=== PATIENT | female | born 1985 | race Caucasian/White ===

== ENCOUNTER 2019-11-14 13:37 | Emergency (ER) | payer OTHER ==
[2019-11-14 13:55] LABS: CHLORIDE,CL 102 mmol/L (98-107); SODIUM,NA 137 mmol/L (136-145)
--- NOTE | 2019-11-14 15:35 | EDM.PDOC ---
ED HPI GENERAL MEDICAL PROBLEM - General Chief Complaint: Laceration Stated Complaint: fall,laceration Time Seen by Provider: 11/14/19 13:38 Source of Information: Reports: Patient History Limitations: Reports: No Limitations - History of Present Illness INITIAL COMMENTS - FREE TEXT/NARRATIVE: Pt fell off excavator and hit right side of head again blade No LOC Laceration right ear Transported from [facility] by private vehicle Last tetanus 2017 Onset: Today, Sudden Location: Reports: Head Context: Reports: Trauma - Related Data Allergies Allergy/AdvReac Type Severity Reaction Status Date / Time No Known Allergies Allergy Verified 11/14/19 14:07 Home Meds: Home Meds . [No Known Home Meds] 11/14/19 [History] ED ROS GENERAL - Review of Systems Review Of Systems: See Below HEENT: Reports: Other (right ear laceration) Respiratory: Reports: No Symptoms Cardiovascular: Reports: No Symptoms GI/Abdominal: Reports: No Symptoms Musculoskeletal: Reports: No Symptoms Skin: Reports: Wound Neurological: Reports: No Symptoms ED EXAM, SKIN/RASH Exam: See Below Exam Limited By: No Limitations General Appearance: Alert, WD/WN, Moderate Distress Eye Exam: Bilateral Eye: EOMI, PERRL Ears: Other (Right ear with large fullthickness laceration thru entire ear from EAC extending outward and laceration to scalp behind ear) Nose: Normal Inspection Throat/Mouth: Normal Oropharynx Neck: Non-Tender Respiratory/Chest: Lungs Clear Cardiovascular: Regular Rate, Rhythm GI/Abdominal: Non-Tender Extremities: Normal Inspection Neurological: Alert, Oriented, No Motor/Sensory Deficits Psychiatric: Normal Affect, Normal Mood Course - Orders/Labs/Meds Orders: Active Orders 24 hr Category Date Time Status Head wo Cont [CT] Stat Exams 11/14/19 13:39 Taken Labs: Laboratory Tests 11/14/19 11/14/19 Range/Units 13:39 13:39 WBC 7.6 (4.0-10.2) K/uL RBC 3.98 (3.77-5.09) M/uL Hgb 12.7 (11.7-15.5) g/dL Hct 37.4 (34.0-46.0) % MCV 94.0 (84.0-98.0) fL MCH 31.9 (28.2-33.3) pg MCHC 34.0 (31.7-36.0) g/dL RDW 12.6 (11.2-14.1) % Plt Count 210 (150-350) K/uL Neut % (Auto) 51.9 (45.0-80.0) % Lymph % (Auto) 37.9 (10.0-50.0) % [place] % (Auto) 8.1 (2.0-14.0) % Eos % (Auto) 2.0 (0.0-5.0) % Baso % (Auto) 0.1 (0.0-2.0) % Neut # (Auto) 3.96 (1.40-7.00) K/uL Lymph # (Auto) 2.89 (0.50-3.50) K/uL [place] # (Auto) 0.62 (0.00-1.00) K/uL Eos # (Auto) 0.15 (0.00-0.50) K/uL Baso # (Auto) 0.01 (0.00-0.20) K/uL Sodium 137 (136-145) mmol/L Potassium 2.9 L* (3.5-5.1) mmol/L Chloride 102 (98-107) mmol/L Carbon Dioxide 23.5 (21.0-32.0) mmol/L BUN 14 (7-18) mg/dL Creatinine 0.75 (0.51-1.17) mg/dL Est Cr Clr Drug Dosing TNP Estimated GFR (MDRD) > 60 mL/min Glucose 112 H (74-106) mg/dL Calcium 8.8 (8.5-10.1) mg/dL Total Bilirubin 0.4 (0.2-1.0) mg/dL AST 18 (15-37) U/L ALT 31 (12-78) U/L Alkaline Phosphatase 64 (46-116) IU/L Total Protein 7.3 (6.4-8.2) g/dL Albumin 3.9 (3.4-5.0) g/dL - Re-Assessments/Exams Free Text/Narrative Re-Assessment/Exam: 11/14/19 15:[address] scan-WNL Pt requests transfer to [facility] for laceration repair D/W Dr Crocker [facility] Will accept in transfer Departure - Departure Time of Disposition: 15:45 Disposition: DC/Tfer to Acute Hospital 02 Clinical Impression: Laceration of ear Qualifiers: Encounter type: initial encounter Laterality: right Qualified Code(s): S01.311A - Laceration without foreign body of right ear, initial encounter - Discharge Information *PRESCRIPTION DRUG MONITORING PROGRAM REVIEWED*: Not Applicable *COPY OF PRESCRIPTION DRUG MONITORING REPORT IN PATIENT SELENE: Not Applicable Instructions: Laceration Care, Adult Referrals: PCP,None [Primary Care Provider] - Additional Instructions: To [facility] - My Orders Last 24 Hours: My Active Orders 11/14/19 13:39 Head wo Cont [CT] Stat - Assessment/Plan Last 24 Hours: My Active Orders 11/14/19 13:39 Head wo Cont [CT] Stat
== END 2019-11-14 15:45 ==
LOC: LL.ED 13:37
DX: S01.311A Laceration without foreign body of right ear, initial encounter (principal); S01.01XA Laceration without foreign body of scalp, initial encounter; W17.89XA Other fall from one level to another, initial encounter
CPT/HCPCS: 36415; 70450; 80053; 85025; 99284; 99284-25

== ENCOUNTER 2020-03-19 06:19 | Emergency (ER) | payer BC, OTHER ==
[2020-03-19 06:54] LABS: CHLORIDE,CL 103 mmol/L (98-107); SODIUM,NA 137 mmol/L (136-145)
--- NOTE | 2020-03-19 08:26 | EDM.PDOC ---
ED HPI GENERAL MEDICAL PROBLEM - General Chief Complaint: General Stated Complaint: SOB, dizziness Time Seen by Provider: 03/19/20 06:50 Source of Information: Reports: Patient History Limitations: Reports: No Limitations - History of Present Illness INITIAL COMMENTS - FREE TEXT/NARRATIVE: Approx 4am patient was in her [place] while at work when she felt a sudden brief sharp pain left chest. Followed by lightheaded sensation/mild SOB. Patient has had many similar episodes in past, approx 1-2 per month. They usually resolve relatively quickly. She reports that she feels a bit of panic when they start and her instinct is to jump out of her [employer]cat and either run around or walk quickly as she feels this makes the episodes go away more quickly. She feels more anxious if she sits down and waits for them to subside. Usually has a feeling of ringing in ears just prior to episodes but not today. 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 [No Known Home Meds] 11/14/19 [History] Past Medical History Other Cardiovascular History: recurrent dizziness episodes 1-2 times a month Psychiatric History: Reports: Other (See Below) (some feelings of anxiety/life stresses discussed 03/19/20, including stressful childhood and family life. No formal diagnosis of anxiety or depression in past) Social & Family History - Tobacco Use Tobacco Use Status *Q: Current Some Day Tobacco User Years of Tobacco use: 17 Packs/Tins Daily: 0.5 - Caffeine Use Caffeine Use: Reports: Soda - Alcohol Use Alcohol Use History: Yes Days Per Week of Alcohol Use Comment: Daily wine - Recreational Drug Use Recreational Drug Use: No ED ROS GENERAL - Review of Systems Review Of Systems: Comprehensive ROS is negative, except as noted in HPI. ED EXAM, GENERAL - Physical Exam Exam: See Below Exam Limited By: No Limitations General Appearance: Alert, WD/WN, No Apparent Distress Eye Exam: Bilateral Eye: EOMI, PERRL Ears: Normal External Exam, Normal Canal, Hearing Grossly Normal Nose: No: Nasal Deformity, Nasal Swelling, Nasal Drainage Throat/Mouth: Normal Lips, Normal Voice, No Airway Compromise Head: Normocephalic, Sinus Tenderness Neck: Normal Inspection, Supple, Non-Tender, Full Range of Motion Respiratory/Chest: No Respiratory Distress, Lungs Clear, Normal Breath Sounds, Chest Non-Tender Cardiovascular: Normal Peripheral Pulses, Regular Rate, Rhythm, No Edema, No Murmur GI/Abdominal: Normal Bowel Sounds, Soft, Non-Tender, No Distention (Female) Exam: Deferred Rectal (Female) Exam: Deferred Back Exam: Normal Inspection Extremities: Normal Inspection, Non-Tender, No Pedal Edema, Normal Capillary Refill Neurological: Alert, Oriented, Normal Cognition, Normal Gait, No Motor/Sensory Deficits Psychiatric: Normal Affect, Normal Mood Skin Exam: Warm, Dry, Intact, Normal Color #1 Interpretation EKG Date: 03/19/20 Time: 06:37 Rhythm: Other (sinus rhythm) Rate (Beats/Min): 73 Comparison: Other: (Suspect large amount of artifact present--Lead I appears to show NSR. Does not appear consistent with A-flutter. New EKG ordered.) #2 Interpretation EKG Date: 03/19/20 Time: 07:05 Rhythm: NSR Rate (Beats/Min): 70 [place]: Normal P-Wave: Present QRS: Normal ST-T: Normal QT: Normal EKG Interpretation Comments: No acute ischemic changes noted. Previous artifact appears to have resolved. Course - Vital Signs Last Recorded V/S: Last Vital Signs Temp 36.3 C 03/19/20 07:12 Pulse 63 03/19/20 08:23 Resp 20 03/19/20 08:23 BP 123/56 L 03/19/20 08:23 Pulse Ox 100 03/19/20 08:23 - Orders/Labs/Meds Orders: Active Orders 24 hr Category Date Time Status EKG Documentation Completion [RC] ASDIRECTED Care 03/19/20 06:27 Active EKG Documentation Completion [RC] ASDIRECTED Care 03/19/20 07:03 Active Chest 1V Frontal [CR] Stat Exams 03/19/20 06:26 Taken Labs: Laboratory Tests 03/19/20 03/19/20 03/19/20 Range/Units 06:35 06:35 06:35 WBC 7.5 (4.0-10.2) K/uL RBC 3.94 (3.77-5.09) M/uL Hgb 12.3 (11.7-15.5) g/dL Hct 36.7 (34.0-46.0) % MCV 93.1 (84.0-98.0) fL MCH 31.2 (28.2-33.3) pg MCHC 33.5 (31.7-36.0) g/dL RDW 12.2 (11.2-14.1) % Plt Count 174 (150-350) K/uL Neut % (Auto) 78.1 (45.0-80.0) % Lymph % (Auto) 15.4 (10.0-50.0) % [place] % (Auto) 5.9 (2.0-14.0) % Eos % (Auto) 0.5 (0.0-5.0) % Baso % (Auto) 0.1 (0.0-2.0) % Neut # (Auto) 5.85 (1.40-7.00) K/uL Lymph # (Auto) 1.15 (0.50-3.50) K/uL [place] # (Auto) 0.44 (0.00-1.00) K/uL Eos # (Auto) 0.04 (0.00-0.50) K/uL Baso # (Auto) 0.01 (0.00-0.20) K/uL D-Dimer, Quantitative < 100 (0-400) ng/mL Sodium 137 (136-145) mmol/L Potassium 3.9 (3.5-5.1) mmol/L Chloride 103 (98-107) mmol/L Carbon Dioxide 24.8 (21.0-32.0) mmol/L BUN 11 (7-18) mg/dL Creatinine 0.68 (0.51-1.17) mg/dL Est Cr Clr Drug Dosing TNP Estimated GFR (MDRD) > 60 mL/min Glucose 109 H (74-106) mg/dL Calcium 8.3 L (8.5-10.1) mg/dL Magnesium 1.9 (1.8-2.4) mg/dL Total Bilirubin 0.4 (0.2-1.0) mg/dL AST 16 (15-37) U/L ALT 29 (12-78) U/L Alkaline Phosphatase 67 (46-116) IU/L Troponin I 0.000 (0.000-0.056) ng/mL Total Protein 6.9 (6.4-8.2) g/dL Albumin 3.9 (3.4-5.0) g/dL Specimen Type Urine Color Urine Appearance Urine pH (5.0-9.0) Ur Specific [place] (1.005-1.030) Urine Protein (NEGATIVE) mg/dL Urine Glucose (UA) (NEGATIVE) mg/dL Urine Ketones (NEGATIVE) mg/dL Urine Occult Blood (NEGATIVE) Urine Nitrite (NEGATIVE) Urine Bilirubin (NEGATIVE) Urine Urobilinogen (0.2-1.0) E.U./dL Ur Leukocyte Esterase (NEGATIVE) Urine RBC /HPF Urine WBC /HPF Ur Epithelial Cells /LPF Urine Bacteria (NONE TO FEW) /HPF 03/19/20 Range/Units 07:42 WBC (4.0-10.2) K/uL RBC (3.77-5.09) M/uL Hgb (11.7-15.5) g/dL Hct (34.0-46.0) % MCV (84.0-98.0) fL MCH (28.2-33.3) pg MCHC (31.7-36.0) g/dL RDW (11.2-14.1) % Plt Count (150-350) K/uL Neut % (Auto) (45.0-80.0) % Lymph % (Auto) (10.0-50.0) % [place] % (Auto) (2.0-14.0) % Eos % (Auto) (0.0-5.0) % Baso % (Auto) (0.0-2.0) % Neut # (Auto) (1.40-7.00) K/uL Lymph # (Auto) (0.50-3.50) K/uL [place] # (Auto) (0.00-1.00) K/uL Eos # (Auto) (0.00-0.50) K/uL Baso # (Auto) (0.00-0.20) K/uL D-Dimer, Quantitative (0-400) ng/mL Sodium (136-145) mmol/L Potassium (3.5-5.1) mmol/L Chloride (98-107) mmol/L Carbon Dioxide (21.0-32.0) mmol/L BUN (7-18) mg/dL Creatinine (0.51-1.17) mg/dL Est Cr Clr Drug Dosing Estimated GFR (MDRD) mL/min Glucose (74-106) mg/dL Calcium (8.5-10.1) mg/dL Magnesium (1.8-2.4) mg/dL Total Bilirubin (0.2-1.0) mg/dL AST (15-37) U/L ALT (12-78) U/L Alkaline Phosphatase (46-116) IU/L Troponin I (0.000-0.056) ng/mL Total Protein (6.4-8.2) g/dL Albumin (3.4-5.0) g/dL Specimen Type Urinvoid Urine Color Light yellow Urine Appearance Slightly cloudy Urine pH 7.0 (5.0-9.0) Ur Specific [place] 1.010 (1.005-1.030) Urine Protein Negative (NEGATIVE) mg/dL Urine Glucose (UA) Negative (NEGATIVE) mg/dL Urine Ketones Negative (NEGATIVE) mg/dL Urine Occult Blood Trace-intact H (NEGATIVE) Urine Nitrite Negative (NEGATIVE) Urine Bilirubin Negative (NEGATIVE) Urine Urobilinogen 0.2 (0.2-1.0) E.U./dL Ur Leukocyte Esterase Negative (NEGATIVE) Urine RBC 0-5 /HPF Urine WBC 0-5 /HPF Ur Epithelial Cells Few /LPF Urine Bacteria Few (NONE TO FEW) /HPF - Radiology Interpretation Free Text/Narrative:: Chest xray unremarkable for acute changes/infiltrates - Re-Assessments/Exams Free Text/Narrative Re-Assessment/Exam: 03/19/20 09:06 Patient essentially complaint-free after initial EKG. Cardiac routines obtained/unremarkable results. Call placed to [facility] to have EKGs reviewed by Cardiology. Prolonged wait until cell phone repair technician Cna Hha, , was able to get to the hospital and be able to review faxed copies in person. He too felt that the first EKG showed a lot of artifact and did not reflect an arrhythmia. This was reviewed with patient. Differential for patient's episodes continues to include arrhythmia as well as anxiety/panic episodes. Long time spent reviewing current life/family/work stresses with patient. Life style strategies, including meditation and diet change, reviewed with patient. Recommended she greatly reduce daily wine intake/processed food. She is to follow up with [facility] clinic and work with them on obtaining longer term Holter monitor to see if any arrhythmia can be captured during one of her episodes. She can also discuss if she is candidate for any medication strategy that might be helpful if this is felt to be more of a panic disorder. Precautions reviewed/to follow up as needed if she has problems/concerns. P atient agreeable with plan. Departure - Departure Time of Disposition: 08:26 Disposition: Home, Self-Care 01 Condition: Good Clinical Impression: Atypical chest pain - Discharge Information *PRESCRIPTION DRUG MONITORING PROGRAM REVIEWED*: Not Applicable *COPY OF PRESCRIPTION DRUG MONITORING REPORT IN PATIENT SELENE: Not Applicable Instructions: Nonspecific Chest Pain, Adult Referrals: PCP,Unknown [Primary Care Provider] - Forms: ED Department Discharge Additional Instructions: Follow up with [facility] clinic and discuss a longer term Holter monitor to see if there is a measurable cardiac change when you have one of your episodes. They can hopefully help you work through the problem a bit better to see if this is more of a panic vs cardiac vs both issue. Follow up otherwise as needed if you have additional problems/concerns! Sepsis Event Note (ED) - Evaluation Sepsis Screening Result: No Definite Risk - Focused Exam Vital Signs: Vital Signs Temp Pulse Resp BP Pulse Ox 03/19/20 08:23 63 20 123/56 L 100 03/19/20 07:12 36.3 C 66 20 135/82 100 03/19/20 06:20 36.5 C 77 13 113/80 98 - My Orders Last 24 Hours: My Active Orders 03/19/20 06:26 Chest 1V Frontal [CR] Stat 03/19/20 06:27 EKG Documentation Completion [RC] ASDIRECTED 03/19/20 07:03 EKG Documentation Completion [RC] ASDIRECTED - Assessment/Plan Last 24 Hours: My Active Orders 03/19/20 06:26 Chest 1V Frontal [CR] Stat 03/19/20 06:27 EKG Documentation Completion [RC] ASDIRECTED 03/19/20 07:03 EKG Documentation Completion [RC] ASDIRECTED
== END 2020-03-19 09:10 | disposition home or self-care (01) ==
LOC: LL.ED 06:19
DX: R07.89 Other chest pain (principal); R42 Dizziness and giddiness; F17.210 Nicotine dependence, cigarettes, uncomplicated
CPT/HCPCS: 36415; 71045; 80053; 81001; 83735; 84484; 85025; 85379; 93005; 99285-25